=== PATIENT | female | born 1935 | race Caucasian/White ===

== ENCOUNTER 2017-10-29 12:02 | Emergency (ER) | payer OTHER ==
[~2017-10-29] VITALS: Ht 167.6 cm; Wt 77.1 kg
[2017-10-29 12:05] VITALS: BP_SYST 149
--- NOTE | 2017-10-29 12:05 | NUR ---
Arrived via BLS ambulance for eval of left rib pain. States that the rib did not initailly bother her. Denies SOB, lungs clear. Patient to ER [facility] 1 to gown for evaluation. Side rails up. Assumed care of patient.
--- NOTE | 2017-10-29 12:40 | NUR ---
ER Dr. Chavez at bedside examining patient.
--- NOTE | 2017-10-29 15:14 | NUR ---
Patient was discharged to home ([facility]) via taxi. Patient given written and verbal discharge instructions and verbalizes understanding. ER MD discussed with patient the results and treatment provided. Patient in stable condition. ID arm band removed. Rx of Motrin given. Patient educated on pain management and to follow up with PMD. Pain Scale 0/10. Opportunity for questions provided and answered. Medication side effect fact sheet provided.
== END 2017-10-29 15:21 | disposition home or self-care (01) ==
LOC: SED 12:02
DX: S20.212A Contusion of left front wall of thorax, initial encounter (principal); E11.9 Type 2 diabetes mellitus without complications; I10 Essential (primary) hypertension; G30.9 Alzheimer's disease, unspecified; F02.80 Dementia in other diseases classified elsewhere, unspecified severity, without behavioral disturbance, psychotic disturbance, mood disturbance, and anxiety; Z85.850 Personal history of malignant neoplasm of thyroid; W18.30XA Fall on same level, unspecified, initial encounter; Y93.89 Activity, other specified; Y92.091 Bathroom in other non-institutional residence as the place of occurrence of the external cause; Y99.8 Other external cause status
CPT/HCPCS: 71045; 71100; 99284

== ENCOUNTER 2018-11-25 00:04 | Emergency (ER) | payer OTHER ==
[~2018-11-25] VITALS: Ht 165.1 cm; Wt 68.0 kg
[2018-11-25 00:04] VITALS: BP_SYST 117
--- NOTE | 2018-11-25 00:04 | NUR ---
Pt BIB BLS from [facility] s/p fall out of bed. Pt had 2 falls 2 nights ago and 3 falls last night. Pt AAOx2, denies hitting head, no LOC. Pt states that she hit her left knee and c/o pain to site. No swelling or deformity noted.
--- NOTE | 2018-11-25 00:35 | NUR ---
Dr. Tobias at bedside.
--- NOTE | 2018-11-25 01:00 | NUR ---
No needs verbalized at this time.
--- NOTE | 2018-11-25 01:00 | NUR ---
Knee immobilizer placed to LLE, non constrictive. Pt tolerated well.
[2018-11-25] MEDS ORDERED: ACETAMINOPHEN 500 MG TABLET PO ONE (01:30)
--- NOTE | 2018-11-25 02:05 | NUR ---
Called [facility], spoke with Magui to inform that pt is returning to their facility.
[2018-11-25 02:20] VITALS: BP_SYST 117
--- NOTE | 2018-11-25 02:20 | NUR ---
EMT and Patient given written and verbal discharge instructions and verbalizes understanding. ER MD discussed with patient the results and treatment provided. Patient in stable condition. ID arm band removed. Rx of Motrin given. Patient educated on pain management and to follow up with PMD. Pain Scale 1/10. Opportunity for questions provided and answered. Medication side effect fact sheet provided.
== END 2018-11-25 02:20 | disposition home or self-care (01) ==
LOC: SED 00:04
DX: S86.912A Strain of unspecified muscle(s) and tendon(s) at lower leg level, left leg, initial encounter (principal); E11.9 Type 2 diabetes mellitus without complications; I10 Essential (primary) hypertension; G30.9 Alzheimer's disease, unspecified; F02.80 Dementia in other diseases classified elsewhere, unspecified severity, without behavioral disturbance, psychotic disturbance, mood disturbance, and anxiety; Z85.850 Personal history of malignant neoplasm of thyroid; W19.XXXA Unspecified fall, initial encounter; Y93.89 Activity, other specified; Y92.89 Other specified places as the place of occurrence of the external cause; Y99.8 Other external cause status
CPT/HCPCS: 73564; 99283